=== PATIENT | female | born 2000 | race Hispanic/Latino ===

== ENCOUNTER 2021-01-10 16:03 | Emergency (ER) | payer BC ==
[~2021-01-10] VITALS: Ht 162.6 cm; Wt 71.7 kg
[2021-01-10] MEDS ORDERED: AMOXICILLIN/CLAVULANATE K 875 MG TAB PO ONE (17:11)
[2021-01-10] MEDS ORDERED: CEPHALEXIN500 MG PO (17:14)
[2021-01-10] MEDS ORDERED: AMOXICILLIN/CLAVULANATE K 875 MG TAB ONE (17:32)
== END 2021-01-10 18:50 | disposition home or self-care (01) ==
LOC: FSED 16:15
DX: N61.0 Mastitis without abscess (principal); N64.4 Mastodynia; Z87.442 Personal history of urinary calculi
CPT/HCPCS: 81025; 93005; 99283